=== PATIENT | male | born 1955 | race Caucasian/White ===

== ENCOUNTER 2025-03-21 11:53 | Emergency (ER) | payer MEDICARE, OTHER | END 2025-03-21 13:05 | disposition home or self-care (01) | LOC: NAV ERS 11:53 | DX: S29.011A Strain of muscle and tendon of front wall of thorax, initial encounter (principal); S21.102A Unspecified open wound of left front wall of thorax without penetration into thoracic cavity, initial encounter; E78.00 Pure hypercholesterolemia, unspecified; I10 Essential (primary) hypertension; Z79.899 Other long term (current) drug therapy; X58.XXXA Exposure to other specified factors, initial encounter | CPT/HCPCS: 71250 ==